=== PATIENT | male | born 1955 | race Hispanic/Latino ===

== ENCOUNTER 2017-06-23 08:16 | Emergency (ER) | payer OTHER ==
[2017-06-23 08:24] VITALS: BP 129/76; PULSE 90; RESP 20; TEMP 97.5
[2017-06-23 08:46] VITALS: O2SAT 98
--- NOTE | 2017-06-23 10:00 | ED PDOC ---
Upper Extremity Pain/Injury Time Seen by Provider: 06/23/17 09:02 Chief Complaint (Nursing): Upper Extremity Problem/Injury Chief Complaint (Provider): Right wrist pain History Per: Patient History/Exam Limitations: no limitations Onset/Duration Of Symptoms: Days (x1) Current Symptoms Are (Timing): Still Present Quality: "Pain" Exacerbating Factor(s): Movement Additional Complaint(s): Jered Barnes is a 61 year old male, with no significant past medical history, who presents to the emergency department for a right wrist injury onset yesterday. 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 He is complaining of mild pain but no deformity or swelling. Patient states pain is worst with movement. He took Tylenol yesterday with no relief. He denies any other injuries. No further medical complaints. PMD: None provided. Past Medical History Reviewed: Historical Data, Nursing Documentation, Vital Signs Vital Signs: Last Vital Signs Temp 97.5 F L 06/23/17 08:23 Pulse 90 06/23/17 08:23 Resp 20 06/23/17 08:23 BP 129/76 06/23/17 08:23 Pulse Ox 98 06/23/17 08:43 - Medical History PMH: No Chronic Diseases - Surgical History Surgical History: No Surg Hx - Family History Family History: States: Unknown Family Hx - Immunization History Hx Influenza Vaccination: No Hx Pneumococcal Vaccination: No - Home Medications Home Medications: Ambulatory Orders Medication Instructions Recorded Ibuprofen [Motrin] 600 mg PO TID #15 tab 06/10/15 Oseltamivir [Tamiflu] 1 cap PO BID #10 cap 06/10/15 - Allergies Allergies/Adverse Reactions: Allergies Allergy/AdvReac Type Severity Reaction Status Date / Time cats Allergy Uncoded 06/10/15 13:41 dogs Allergy Uncoded 06/10/15 13:41 seasonal Allergy Uncoded 06/10/15 13:41 Review of Systems ROS Statement: Except As Marked, All Systems Reviewed And Found Negative Musculoskeletal: Positive for: Hand Pain (right wrist) Physical Exam - Reviewed Nursing Documentation Reviewed: Yes Vital Signs Reviewed: Yes - Physical Exam Appears: Positive for: Well, Non-toxic, No Acute Distress Head Exam: Positive for: ATRAUMATIC, NORMAL INSPECTION, NORMOCEPHALIC Skin: Positive for: Normal Color, Warm, Dry Eye Exam: Positive for: Normal appearance Neck: Positive for: Painless ROM Respiratory: Negative for: Respiratory Distress Extremity: Positive for: Normal ROM (upper extremities), Tenderness (mild snuffbox ). Negative for: Deformity (right wrist), Swelling (right wrist) Neurologic/Psych: Positive for: Alert, Oriented - ECG O2 Sat by Pulse Oximetry: 98 (RA) Pulse Ox Interpretation: Normal Medical Decision Making Medical Decision Making: Initial Impression: wrist injury and pain. Differential includes wrist sprain, wrist fracture or dislocation Initial Plan: --Wrist, right 3 views [RAD] --Reevaluation 11:00 -Xray show no acute findings. Diagnosis wrist sprain. Splint thumb spica applied by instructional support technician. Scribe Attestation: Documented by Dawson Calderon, acting as a scribe for Emmanuel Orozco MD Provider Scribe Attestation: All medical record entries made by the Scribe were at my direction and personally dictated by me. I have reviewed the chart and agree that the record accurately reflects my personal performance of the history, physical exam, medical decision making, and the department course for this patient. I have also personally directed, reviewed, and agree with the discharge instructions and disposition. Disposition - Clinical Impression Clinical Impression: Wrist pain - Patient ED Disposition Is Patient to be Admitted: No Doctor Will See Patient In The: Office Counseled Patient/Family Regarding: Studies Performed, Diagnosis - Disposition Referrals: [facility] [Outside] Disposition: Routine/Home Disposition Time: 11:15 Condition: GOOD Additional Instructions: Take motrin for pain. Keep splint on for 2 weeks. Follow up with your PCP in 2- 3 days. Instructions: Common Wrist Injuries Forms: [facility] ED School/Work Excuse
--- NOTE | 2017-06-23 15:25 | RAD ---
PROCEDURE: Right Wrist Radiographs. HISTORY: right wrist pain injury COMPARISON: None. FINDINGS: BONES: Normal. No fracture. JOINTS: Normal. No dislocation. SOFT TISSUES: Soft tissue swelling about the wrist particularly laterally. OTHER FINDINGS: None. IMPRESSION: Soft tissue swelling without acute articular or osseous abnormality.
== END 2017-06-23 11:18 | disposition home or self-care (01) ==
LOC: H.ER 08:16
DX: M25.531 Pain in right wrist (principal); W19.XXXA Unspecified fall, initial encounter; Y93.H3 Activity, building and construction; Y92.9 Unspecified place or not applicable; Y99.0 Civilian activity done for income or pay